=== PATIENT | male | born 1980 | race Caucasian/White ===

== ENCOUNTER 2021-09-26 08:36 | Inpatient (IN) | payer SELFPAY ==
[2021-09-26] MEDS ORDERED: ONDANSETRON 4 MG/2 ML VIAL IVPUSH ONE (09:44)
[2021-09-26] MEDS ORDERED: SODIUM CHLORIDE 1,000 ML IV STA (09:44)
[2021-09-26] MEDS ORDERED: FAMOTIDINE 20 MG/50 ML IVPB 20 MG/50 ML MG IVPB ONE ×2 (09:44→11:15)
[2021-09-26] MEDS ORDERED: KETOROLAC TROMETHAMINE 30 MG/1 ML VIAL IVPUSH ONE (09:44)
[2021-09-26] MEDS ORDERED: ONDANSETRON 4 MG/2 ML VIAL ONE (11:15)
[2021-09-26] MEDS ORDERED: KETOROLAC TROMETHAMINE 30 MG/1 ML VIAL ONE (11:15)
[2021-09-26 11:24] LABS: BASO % 0.2 % (0-2.0); EOS % 0.2 % (0-4.5); HEMATOCRIT 47.6 % (35.4-49); LYMPH % 6.2 % (8-40); MCH 29.1 pg (25.7-33.7); MCHC 33.7 g/dl (32.0-35.9); MEAN CELL VOLUME 86.1 fl (80-96); MEAN PLT VOLUME 8.7 fl (7.5-11.1); MONO % 7.8 % (3.8-10.2); NEUT % 85.6 % (42.8-82.8); PLATELET COUNT 222 10^3/uL (134-434); RBC 5.52 M/mm3 (4.00-5.60); RDW 14.4 % (11.9-15.9); WHITE BLOOD COUNT 11.3 K/mm3 (4.0-10.0)
[2021-09-26 11:55] LABS: ALBUMIN 4.2 g/dl (3.4-5.0); CALCIUM 9.2 mg/dL (8.5-10.1)
[2021-09-26 11:56] LABS: BLOOD UREA NITROGEN 18.8 mg/dL (7-18); MAGNESIUM 2.3 mg/dL (1.8-2.4)
[2021-09-26 11:59] LABS: CREATININE 0.8 mg/dL (0.55-1.3)
[2021-09-26 12:00] LABS: BILIRUBIN,TOTAL 3.1 mg/dL (0.2-1); TOT PROT 8.2 g/dl (6.4-8.2)
[2021-09-26] MEDS ORDERED: PIPERACILLIN/TAZOB 3.375 GM 3.375 GM in DEXTROSE 5%-WATER - 50 ML IVPB ONE (12:17)
[2021-09-26] MEDS ORDERED: ONDANSETRON 4 MG/2 ML VIAL IVPUSH PRN (12:58)
[2021-09-26] MEDS ORDERED: INDOMETHACIN 50 MG RECTAL SUPPOSITORY PR ONE (13:42)
[2021-09-26] MEDS: LACTATED RINGERS SOLUTION 1,000 ML/1,000 ML INFUS.BAG IV SCH (14:30)
[2021-09-26 14:31] LABS: INR 1.09 (0.83-1.09); PROTHROMBIN TIME (PATIENT) 12.5 SEC (9.7-13.0)
[2021-09-26] MEDS ORDERED: IBUPROFEN 600 MG TABLET (FP) PO ONE (17:42)
[2021-09-26] MEDS ORDERED: PIPERACILLIN/TAZOB 3.375 GM 3.375 GM in DEXTROSE 5%-WATER - 50 ML IVPB SCH (18:00)
[2021-09-26 18:10] LABS: CALCIUM 8.4 mg/dL (8.5-10.1)
[2021-09-26 18:11] LABS: ALBUMIN 3.7 g/dl (3.4-5.0)
[2021-09-26 18:13] LABS: BILIRUBIN,DIRECT 0.9 mg/dL (0.0-0.2); CREATININE 0.8 mg/dL (0.55-1.3)
[2021-09-26 18:15] LABS: BILIRUBIN,TOTAL 2.6 mg/dL (0.2-1); TOT PROT 7.1 g/dl (6.4-8.2)
[2021-09-26 18:36] LABS: HEPATITIS B SURFACE AG MATERN NON-REACTIVE (NONREACTIVE)
[2021-09-26] MEDS ORDERED: DEXTROSE 5%-WATER - 50 ML IVPB ONE (18:45)
[2021-09-26] MEDS ORDERED: PIPERACILLIN/TAZOBACTAM 3.375 GM VIAL IVPB ONE (18:45)
[2021-09-26] MEDS: PIPERACILLIN/TAZOB 3.375 GM 3.375 GM in DEXTROSE 5%-WATER - 50 ML IVPB SCH (18:46)
[2021-09-26 19:04] LABS: HIV INTERPRETATION NEGATIVE (NEGATIVE)
[2021-09-26 19:48] VITALS: BMI 29.3
[2021-09-27] MEDS ORDERED: IBUPROFEN 800 MG/8 ML IJ IVPB ONE (01:36)
[2021-09-27] MEDS ORDERED: PIPERACILLIN/TAZOBACTAM 3.375 GM VIAL IVPB ONE ×3 (02:54→17:35)
[2021-09-27] MEDS ORDERED: DEXTROSE 5%-WATER - 50 ML IVPB ONE ×3 (02:54→17:35)
[2021-09-27] MEDS: PIPERACILLIN/TAZOB 3.375 GM 3.375 GM in DEXTROSE 5%-WATER - 50 ML IVPB SCH ×3 (02:56→17:46)
[2021-09-27] MEDS: LACTATED RINGERS SOLUTION 1,000 ML/1,000 ML INFUS.BAG IV SCH ×3 (06:57→17:47)
[2021-09-27 08:38] LABS: BASO % 0.2 % (0-2.0); EOS % 1.4 % (0-4.5); HEMATOCRIT 41.7 % (35.4-49); HEMOGLOBIN 14.1 GM/dL (11.7-16.9); LYMPH % 10.3 % (8-40); MCH 28.9 pg (25.7-33.7); MCHC 33.9 g/dl (32.0-35.9); MEAN CELL VOLUME 85.3 fl (80-96); MEAN PLT VOLUME 8.1 fl (7.5-11.1); MONO % 8.8 % (3.8-10.2); NEUT % 79.3 % (42.8-82.8); PLATELET COUNT 179 10^3/uL (134-434); RBC 4.89 M/mm3 (4.00-5.60); RDW 14.5 % (11.9-15.9)
[2021-09-27 09:06] LABS: CALCIUM 8.3 mg/dL (8.5-10.1)
[2021-09-27 09:07] LABS: ALBUMIN 3.2 g/dl (3.4-5.0)
[2021-09-27 09:08] LABS: BILIRUBIN,DIRECT 0.8 mg/dL (0.0-0.2)
[2021-09-27 09:09] LABS: CREATININE 0.9 mg/dL (0.55-1.3)
[2021-09-27 09:10] LABS: BILIRUBIN,TOTAL 2.7 mg/dL (0.2-1); TOT PROT 6.6 g/dl (6.4-8.2)
[2021-09-27] MEDS ORDERED: IBUPROFEN 600 MG TABLET (FP) PO ONE (18:03)
[2021-09-27] MEDS ORDERED: FAMOTIDINE 10 MG TABLET PO ONE (18:03)
[2021-09-28] MEDS ORDERED: DEXTROSE 5%-WATER - 50 ML IVPB ONE ×2 (02:44→09:24)
[2021-09-28] MEDS ORDERED: PIPERACILLIN/TAZOBACTAM 3.375 GM VIAL IVPB ONE ×2 (02:44→09:24)
[2021-09-28] MEDS: PIPERACILLIN/TAZOB 3.375 GM 3.375 GM in DEXTROSE 5%-WATER - 50 ML IVPB SCH ×2 (03:00→09:28)
[2021-09-28 07:12] LABS: BASO % 0.4 % (0-2.0); EOS % 4.4 % (0-4.5); HEMATOCRIT 41.9 % (35.4-49); HEMOGLOBIN 14.5 GM/dL (11.7-16.9); LYMPH % 15.2 % (8-40); MCH 29.4 pg (25.7-33.7); MCHC 34.5 g/dl (32.0-35.9); MEAN CELL VOLUME 85.1 fl (80-96); MEAN PLT VOLUME 8.1 fl (7.5-11.1); PLATELET COUNT 172 10^3/uL (134-434); RBC 4.93 M/mm3 (4.00-5.60); RDW 13.9 % (11.9-15.9); WHITE BLOOD COUNT 7.4 K/mm3 (4.0-10.0)
[2021-09-28 07:33] LABS: CALCIUM 8.5 mg/dL (8.5-10.1)
[2021-09-28 07:34] LABS: ALBUMIN 3.2 g/dl (3.4-5.0); BLOOD UREA NITROGEN 9.7 mg/dL (7-18); MAGNESIUM 2.5 mg/dL (1.8-2.4)
[2021-09-28 07:37] LABS: CREATININE 0.9 mg/dL (0.55-1.3)
[2021-09-28 07:38] LABS: BILIRUBIN,TOTAL 2.2 mg/dL (0.2-1); TOT PROT 6.7 g/dl (6.4-8.2)
[2021-09-28] MEDS: LACTATED RINGERS SOLUTION 1,000 ML/1,000 ML INFUS.BAG IV SCH (08:27)
[2021-09-28] MEDS ORDERED: BUPIVACAINE HCL/PF 0.25% (2.5MG/ML) 10 ML VIAL ONE (12:57)
[2021-09-28] MEDS ORDERED: MIDAZOLAM HCL 2 MG/2 ML SINGLE DOSE VIAL ONE (13:00)
[2021-09-28] MEDS ORDERED: ROCURONIUM BROMIDE 50 MG/5 ML SYRINGE ONE (13:00)
[2021-09-28] MEDS ORDERED: LIDOCAINE HCL/PF 2% SDV 5ML VIAL ONE (13:00)
[2021-09-28] MEDS ORDERED: PROPOFOL 20 ML ONE (13:00)
[2021-09-28] MEDS ORDERED: KETOROLAC TROMETHAMINE 30 MG/1 ML VIAL ONE ×2 (13:42→14:28)
[2021-09-28] MEDS ORDERED: DEXAMETHASONE SOD PHOSPHATE 4 MG/1 ML VIAL ONE (13:42)
[2021-09-28] MEDS ORDERED: BUPIVACAINE HCL/PF 0.25% (2.5MG/ML) 10 ML VIAL IJ ONE (13:58)
[2021-09-28] MEDS ORDERED: GLYCOPYRROLATE 0.2 MG/1 ML VIAL ONE ×3 (14:37)
[2021-09-28] MEDS ORDERED: NEOSTIGMINE METHYLSULFATE 0.5 MG/ML - 10 ML MDV ONE (14:37)
[2021-09-28] MEDS ORDERED: PROMETHAZINE HCL 25 MG/1 ML VIAL IVPUSH PRN (14:54)
[2021-09-28] MEDS ORDERED: ONDANSETRON 4 MG/2 ML VIAL IVPUSH PRN ×2 (14:54→15:05)
[2021-09-28] MEDS ORDERED: LACTATED RINGERS SOLUTION 1,000 ML IV SCH (15:00)
[2021-09-28] MEDS ORDERED: FENTANYL CITRATE/PF 50 MCG/ML VIAL ONE ×3 (15:08→15:40)
[2021-09-28] MEDS: LACTATED RINGERS SOLUTION 1,000 ML IV SCH (16:35)
[2021-09-28] MEDS: oxyCODONE HCL 5 MG TABLET PO PRN (20:27)
[2021-09-28] MEDS ORDERED: ACETAMINOPHEN 500 MG TABLET (FP) PO PRN (21:00)
[2021-09-29] MEDS: IBUPROFEN 600 MG TABLET (FP) PO PRN ×2 (02:23→13:34)
[2021-09-29 09:58] LABS: BASO % 0.1 % (0-2.0); HEMATOCRIT 40.4 % (35.4-49); HEMOGLOBIN 13.6 GM/dL (11.7-16.9); LYMPH % 9.9 % (8-40); MCH 28.6 pg (25.7-33.7); MCHC 33.6 g/dl (32.0-35.9); MEAN CELL VOLUME 85.2 fl (80-96); MEAN PLT VOLUME 8.3 fl (7.5-11.1); MONO % 8.6 % (3.8-10.2); NEUT % 81.4 % (42.8-82.8); PLATELET COUNT 224 10^3/uL (134-434); RBC 4.74 M/mm3 (4.00-5.60); RDW 13.9 % (11.9-15.9); WHITE BLOOD COUNT 11.7 K/mm3 (4.0-10.0)
[2021-09-29 10:19] LABS: CALCIUM 8.6 mg/dL (8.5-10.1)
[2021-09-29 10:20] LABS: BLOOD UREA NITROGEN 13.5 mg/dL (7-18)
[2021-09-29 10:23] LABS: CREATININE 0.8 mg/dL (0.55-1.3)
[2021-09-29 10:24] LABS: TOT PROT 6.4 g/dl (6.4-8.2)
[2021-09-29 10:28] LABS: BILIRUBIN,TOTAL 0.9 mg/dL (0.2-1)
[2021-09-29] MEDS: oxyCODONE HCL 5 MG TABLET PO PRN (13:35)
[2021-09-29 15:02] VITALS: BP 115/53; PULSE 72; TEMP 99.4
[2021-09-29] MEDS: LACTATED RINGERS SOLUTION 1,000 ML IV SCH (18:31)
== END 2021-09-29 20:11 | disposition home or self-care (01) | DRG 263 ==
LOC: JER 08:36 → JERBED 12:34 → J6S 17:59
PROVIDERS: ADMIT Internal Medicine; ATTEND Internal Medicine
PROC: 0FT44ZZ Resection of Gallbladder, Percutaneous Endoscopic Approach (ICD-10-PCS; principal; 2021-09-28 12:00)
DX: K80.42 Calculus of bile duct with acute cholecystitis without obstruction (principal); R79.89 Other specified abnormal findings of blood chemistry; K83.8 Other specified diseases of biliary tract
CPT/HCPCS: 36415; 74177-TC; 74181-TC; 76705-TC; 80048; 80053; 80076; 83690; 83735; 84484; 85025; 85610; 86708; 86803; 86850; 86900; 86901; 87340; 87389; 87517; 88304-TC; 93005; 93010; 94010; 94760; 99285-25; C9803-CS; Q9967; U0003; U0005